=== PATIENT | male | born 1995 | race American Indian/Alaskan Native ===

== ENCOUNTER 2020-06-14 21:58 | Emergency (ER) | payer SELFPAY ==
[2020-06-14 23:36] VITALS: BP 136/76
[2020-06-15] MEDS ORDERED: LIDOCAINE VISCOUS 2% 15 ML ORAL LIQD PO ONE (03:34)
[2020-06-15] MEDS ORDERED: dexAMETHasone 20 MG/5 ML VIAL IV ONE (03:34)
[2020-06-15] MEDS ORDERED: KETOROLAC 30 MG/1 ML INJ IV ONE (03:35)
[2020-06-15 04:23] LABS: Basophils # (Auto) 0.1 K/mm3 (0.0-0.1); Basophils % (Auto) 0.4 % (0.0-1.8); Eosinophils # (Auto) 0.7 K/mm3 (0.0-0.4); Eosinophils % (Auto) 4.9 % (0.0-4.3); Hematocrit 38.8 % (35.5-45.6); Hemoglobin 12.8 gm/dl (11.8-15.2); Lymphocytes # (Auto) 2.2 K/mm3 (1.2-5.4); Lymphocytes % (Auto) 14.3 % (13.4-35.0); Mean Corpuscular HGB Conc 33 % (32-34); Mean Corpuscular Volume 89 fl (84-94); Monocytes # (Auto) 1.3 K/mm3 (0.0-0.8); Monocytes % (Auto) 8.4 % (0.0-7.3); Platelet Count 329 K/mm3 (140-440); Red Blood Count 4.38 M/mm3 (3.65-5.03); Red Cell Distribution Width 12.6 % (13.2-15.2)
--- NOTE | 2020-06-15 04:36 | Emergency Department Report ---
ED General Adult HPI - General Chief complaint: Sore Throat Stated complaint: SORE THROAT Source: patient Mode of arrival: Ambulatory Limitations: No Limitations - History of Present Illness Initial comments: Patient is a 25-year-old -[place] male with no past medical history presents to the ED with complaint of acute onset persistent severe sore throat with dysphagia and hoarseness for the last 1 week. Patient states that the symptoms have worsened in the last 4 days such that he is unable to swallow anything because of severe pain and swelling of the throat. Patient states that his symptoms started with nasal and sinus congestion with persistent dry cough for a week and thereafter he started having a sore throat as well. Patient states that he has been taking [id number] decongestants with no relief. Patient denies dizziness, syncope, chest pain, shortness of breath, abdominal pain, fever, chills, nausea, vomiting, diarrhea, syncope, seizures, change in vision, diarrhea or dysuria and testicular pain. MD Complaint: Sore throat, dysphagia, cough -: Sudden, week(s) (1) Location: mouth Radiation: non-radiation Severity scale (0 -10): 8 Quality: aching, sharp Consistency: constant Improves with: none Worsens with: eating, other (Swallowing and speech) Associated Symptoms: denies other symptoms, cough. denies: confusion, chest pain, diaphoresis, fever/chills, headaches, loss of appetite, malaise, nausea/vomiting, rash, seizure, shortness of breath, syncope, weakness, other Treatments Prior to Arrival: none - Related Data Previous Rx's Medication Instructions Recorded Last Taken Type Clindamycin [Clindamycin CAP] 300 mg PO Q8HR #60 capsule 06/15/20 Unknown Rx Ibuprofen [Motrin] 800 mg PO Q8HR PRN #30 tablet 06/15/20 Unknown Rx Lidocaine Viscous 2% 10 ml PO Q4H PRN #120 ml 06/15/20 Unknown Rx predniSONE [Deltasone] 40 mg PO QDAY #10 tab 06/15/20 Unknown Rx Allergies Allergy/AdvReac Type Severity Reaction Status Date / Time No Known Allergies Allergy Unverified 06/14/20 23:45 ED Review of Systems ROS: Stated complaint: SORE THROAT Other details as noted in HPI Constitutional: chills. denies: fever Eyes: denies: eye pain, eye discharge, vision change ENT: throat pain, congestion, other (Dysphagia). denies: ear pain Respiratory: cough. denies: shortness of breath, wheezing Cardiovascular: denies: chest pain, palpitations Endocrine: no symptoms reported Gastrointestinal: denies: abdominal pain, nausea, vomiting, diarrhea Genitourinary: denies: urgency, dysuria Musculoskeletal: myalgia. denies: back pain, joint swelling, arthralgia Skin: denies: rash, lesions Neurological: headache. denies: weakness, paresthesias Psychiatric: denies: anxiety, depression Hematological/Lymphatic: denies: easy bleeding, easy bruising ED Past Medical Hx - Past Medical History Previous Medical History?: No - Surgical History Past Surgical History?: No - Social History Smoking Status: Never Smoker Substance Use Type: None - Medications Home Medications: Home Medications Medication Instructions Recorded Confirmed Last Taken Type Clindamycin [Clindamycin CAP] 300 mg PO Q8HR #60 capsule 06/15/20 Unknown Rx Ibuprofen [Motrin] 800 mg PO Q8HR PRN #30 tablet 06/15/20 Unknown Rx Lidocaine Viscous 2% 10 ml PO Q4H PRN #120 ml 06/15/20 Unknown Rx predniSONE [Deltasone] 40 mg PO QDAY #10 tab 06/15/20 Unknown Rx ED Physical Exam - General Limitations: No Limitations General appearance: alert, in no apparent distress - Head Head exam: Present: atraumatic, normocephalic, normal inspection - Eye Eye exam: Present: normal appearance, PERRL, EOMI Pupils: Present: normal accommodation - ENT ENT exam: Present: mucous membranes moist, other (Swelling, erythematous bilateral tonsil with peak yellowish-green exudates and swollen uvula.) - Neck Neck exam: Present: normal inspection, lymphadenopathy (Palpable anterior cervical lymphadenopathy) - Respiratory Respiratory exam: Present: normal lung sounds bilaterally. Absent: respiratory distress, wheezes, stridor, chest wall tenderness, decreased breath sounds - Cardiovascular Cardiovascular Exam: Present: regular rate, normal rhythm, normal heart sounds. Absent: systolic murmur, diastolic murmur, rubs, gallop - GI/Abdominal GI/Abdominal exam: Present: soft, normal bowel sounds. Absent: tenderness, guarding, rebound, hyperactive bowel sounds, hypoactive bowel sounds - Extremities Exam Extremities exam: Present: normal inspection, full ROM, normal capillary refill - Back Exam Back exam: Present: normal inspection, full ROM. Absent: tenderness, CVA tenderness (R), CVA tenderness (L), muscle spasm, vertebral tenderness - Neurological Exam Neurological exam: Present: alert, oriented X3, CN II-XII intact, normal gait, reflexes normal - Psychiatric Psychiatric exam: Present: normal affect, normal mood - Skin Skin exam: Present: warm, dry, intact, normal color. Absent: rash ED Course Vital Signs 06/14/20 23:34 Temperature 98.2 F Pulse Rate 97 H Respiratory 17 Rate Blood Pressure 136/76 O2 Sat by Pulse 96 Oximetry ED Medical Decision Making - Lab Data Result diagrams: 06/15/20 03:42 06/15/20 03:42 - Radiology Data Radiology results: report reviewed, image reviewed Findings [facility] [address] [place] [address] Cat Scan Report Signed Patient: MOSES COSBY MR#: [id number] : 1995 Acct:[id number] Age/Sex: 25 / M ADM Date: 06/14/20 Loc: ED Attending Dr: Ordering Physician: MADDISON PAREKH Date of Service: 06/15/20 Procedure(s): CT neck w con Accession Number(s): [id number] cc: MADDISON PAREKH CLINICAL DATA: Question Peritonsillar Abscess vs Tonsillitis TECHNICAL DATA: CT imaging of the neck was performed with intravenous contrast. Imaging was performed in the axial, coronal, and sagittal planes. All CT scans at this location are performed using CT dose reduction for ALARA by means of automated exposure control FINDINGS: The bilateral parotid and submandibular glands are normal in size and architecture. Soft tissue swelling with a small abscess left peritonsillar region is noted. The abscess measures approximately 1.3 cm with effacement of the airway is present. There is no evidence of abnormal mass or lymphadenopathy. No abnormal contrast enhancement is noted. Thyroid gland and upper airway as well as superior mediastinum are normal. The pattern of vascular enhancement is normal. Floor of the mouth and submental triangle are normal. Visualized orbital and sinus structures are normal. IMPRESSION: Inflammatory changes Peritonsillar region on the left with a small abscess Signer Name: Jeremias Ruiz MD Signed: 06/15/2020 5:40 AM Workstation Name: [id number] Transcribed By: TIANA Dictated By: Jeremias Ruiz MD Electronically Authenticated By: Jeremias Ruiz MD Signed Date/Time: 06/15/20539 DD/ 6 TD/TT: Findings [address] [address] XRay Report Signed Patient: MOSES COSBY MR#: [id number] : 1995 Acct:[id number] Age/Sex: 25 / M ADM Date: 06/14/20 Loc: ED Attending Dr: Ordering Physician: MADDISON PAREKH Date of Service: 06/15/20 Procedure(s): XR chest 1V ap Accession Number(s): [id number] cc: MADDISON PAREKH Fluoro Time In Minutes: CHEST 1 VIEW INDICATION: Cough COMPARISON: None FINDINGS: SUPPORT DEVICES: None. HEART / MEDIASTINUM: No significant abnormality. LUNGS / PLEURA: No significant pulmonary or pleural abnormality. No pneumothorax. ADDITIONAL FINDINGS: IMPRESSION: 1. No acute cardiopulmonary disease Signer Name: Jeremias Ruiz MD Signed: 06/15/2020 5:40 AM Workstation Name: [id number] Transcribed By: TIANA Dictated By: Jeremias Ruiz MD Electronically Authenticated By: Jeremias Ruiz MD Signed Date/Time: 06/15/20539 DD/ 9 TD/TT: - Medical Decision Making This is a 25-year-old -[place] male with no past medical history presents to the ED with complaint of acute onset persistent severe sore throat with dysphagia and hoarseness for the last 1 week. Patient states that the symptoms have worsened in the last 4 days such that he is unable to swallow anything because of severe pain and swelling of the throat. Patient states that his symptoms started with nasal and sinus congestion with persistent dry cough for a week and thereafter he started having a sore throat as well. Patient states that he has been taking [id number] decongestants with no relief. In the ED, patient is alert and oriented x3 and is not in distress but appears to be in significant pain. Patient was treated for pain in the ED. Patient also received Decadron and clindamycin IV in the ED. Lab test results were reviewed and showed acute leukocytosis of 15,100. The rest of the lab test results are nonactionable. Chest x-ray shows no acute cardiopulmonary abnormalities or pneumonitis. CT neck with contrast showed inflammatory changes Peritonsillar region on the left with a small abscess. On reevaluation, patient is alert and oriented x3 and is not in distress. Patient is able to eat and drink in the ED with no difficulties. Patient stated that he was feeling much better after the treatment so far offered in the ED. With this, the patient's case was discussed with the ED attending physician Dr. Crain who agreed the plan of care to discharge patient home on oral antibiotics and give him a referral to the ENT physician Dr. Wilson for follow up. Patient was otherwise advised to return to the ED immediately if symptoms get worse. - Differential Diagnosis Strep pharyngitis; tonsillitis; peritonsillar abscess; mononucleosis Critical care attestation.: If time is entered above; I have spent that time in minutes in the direct care of this critically ill patient, excluding procedure time. ED Disposition Clinical Impression: Acute bacterial pharyngitis, Acute bacterial tonsillitis, Peritonsillar abscess Disposition: DC-01 TO HOME OR SELFCARE Is pt being admited?: No Does the pt Need Aspirin: No Condition: Stable Instructions: Pharyngitis (ED), Peritonsillar Abscess (ED), Tonsillitis (ED) Additional Instructions: Take medication with food, drink plenty fluids and follow-up with Dr. Wilson the ENT physician for further evaluation in the next 24 to 48 hours. Return to the ED immediately if symptoms get worse. Prescriptions: Clindamycin [Clindamycin CAP] 300 mg PO Q8HR #60 capsule predniSONE [Deltasone] 40 mg PO QDAY #10 tab Lidocaine Viscous 2% 10 ml PO Q4H PRN #120 ml PRN Reason: Sore Throat Ibuprofen [Motrin] 800 mg PO Q8HR PRN #30 tablet PRN Reason: Pain , Severe (7-10) Referrals: SNEHAL WILSON MD [Staff Physician] - 3-5 Days [facility] [Provider Group] - 3-5 Days Time of Disposition: 06:09 Print Language: CITIZEN OF [place]
[2020-06-15 04:41] LABS: Alanine Aminotransferase 18 units/L (7-56); Albumin 4.2 g/dL (3.9-5); BUN/Creatinine Ratio 9; Blood Urea Nitrogen 9 mg/dL (9-20); Calcium 9.6 mg/dL (8.4-10.2); Hemolysis Index 0
--- NOTE | 2020-06-15 05:44 | Cat Scan Report ---
CLINICAL DATA: Question Peritonsillar Abscess vs Tonsillitis TECHNICAL DATA: CT imaging of the neck was performed with intravenous contrast. Imaging was performed in the axial, c oronal, and sagittal planes. All CT scans at this location are performed using CT dose reduction for ALARA by means of automated e xposure control FINDINGS: The bilateral parotid and submandibular glands are normal in size and architecture. Soft tissue swell ing with a small abscess left peritonsillar region is noted. The abscess measures approximately 1.3 c m with effacement of the airway is present. There is no evidence of abnormal mass or lymphadenopathy. No abnormal contrast enhancement is noted. Thyroid gland and upper airway as well as superior mediastinum are normal. The pattern of vascular e nhancement is normal. Floor of the mouth and submental triangle are normal. Visualized orbital and sinus structures are normal. IMPRESSION: Inflammatory changes Peritonsillar region on the left with a small abscess Signer Name: Jeremias Ruiz MD Signed: 06/15/2020 5:40 AM Workstation Name: [id number]
--- NOTE | 2020-06-15 05:45 | XRay Report ---
CHEST 1 VIEW INDICATION: Cough COMPARISON: None FINDINGS: SUPPORT DEVICES: None. HEART / MEDIASTINUM: No significant abnormality. LUNGS / PLEURA: No significant pulmonary or pleural abnormality. No pneumothorax. ADDITIONAL FINDINGS: IMPRESSION: 1. No acute cardiopulmonary disease Signer Name: Jeremias Ruiz MD Signed: 06/15/2020 5:40 AM Workstation Name: [id number]
== END 2020-06-15 06:40 | disposition home or self-care (01) ==
LOC: ED 21:58
DX: J03.80 Acute tonsillitis due to other specified organisms (principal); J36 Peritonsillar abscess
CPT/HCPCS: 36415; 70491; 71045; 80053; 85025; 87430; 96374; 96375; 99284; J1100; J1885; Q9967